=== PATIENT | male | born 1955 | race Caucasian/White ===

== ENCOUNTER 2016-10-29 06:30 | Emergency (ER) | payer OTHER ==
[~2016-10-29] VITALS: Ht 172.7 cm; Wt 102.2 kg
[2016-10-29 06:35] VITALS: BP 180/94
[2016-10-29] MEDS ORDERED: KETOROLAC 30 MG/1 ML ONE (07:21)
[2016-10-29] MEDS ORDERED: KETOROLAC 30 MG/1 ML IM ONE (07:30)
== END 2016-10-29 08:44 | disposition home or self-care (01) ==
LOC: ED 08:01
DX: S39.012A Strain of muscle, fascia and tendon of lower back, initial encounter (principal); S33.5XXA Sprain of ligaments of lumbar spine, initial encounter; M51.36 Other intervertebral disc degeneration, lumbar region; X50.9XXA Other and unspecified overexertion or strenuous movements or postures, initial encounter; Y93.89 Activity, other specified; Y92.89 Other specified places as the place of occurrence of the external cause; Y99.8 Other external cause status
CPT/HCPCS: 72110; 96372; 99284; J1885